=== PATIENT | female | born 1975 | race Caucasian/White ===

== ENCOUNTER → 2022-12-08 | Outpatient (CLI) | payer BC | LOC: LAB SHORT 15:11 → PLD 15:11 | DX: D48.5 Neoplasm of uncertain behavior of skin (principal) | CPT/HCPCS: 88304 ==

== ENCOUNTER 2023-06-06 05:57 | Day surgery (SDC) | payer BC ==
[~2023-06-06] VITALS: Ht 180.3 cm; Wt 136.8 kg
[2023-06-06] VITALS (11 sets, daily range): BP systolic 129–160; BP diastolic 74–92
[2023-06-06] MEDS ORDERED: AUROVELA 1 MG-1 EAC1 PO (06:47)
[2023-06-06] MEDS ORDERED: EUTHYROX125 MC1 PO (06:47)
[2023-06-06] MEDS ORDERED: MONT10T PO (06:47)
[2023-06-06] MEDS ORDERED: FLOVENT HFA12 GM INH (06:48)
[2023-06-06] MEDS ORDERED: CYCL10 PO (06:49)
[2023-06-06] MEDS ORDERED: VITAMIN D5000 UNIT PO (06:49)
[2023-06-06] MEDS ORDERED: FERRIC X-150150 M1 PO (06:50)
--- NOTE | 2023-06-06 07:27 | NUR ---
Ambulatory in Day Surgery. Pre-Op teaching done. Pt verbalizes understanding. Patient confirms NPO status and agrees with scheduled surgery. Patient reports completing Chlorhexadine shower X2 prior to admission to hospital. Surgical site prepped with 2% Chlorhexidine cloth wipe. Lungs clear T/O to Auscultation. Patient States Post-Procedure ride home has been arranged.
--- NOTE | 2023-06-06 09:30 | NUR ---
PT TO DAY SURGERY STEP DOWN. PT IS AWAKE AND ORIENTED, ABLE TO MOVE SELF IN BED, HAS NO COMPLAINTS. PT HAS UMBILICAL DRESSING, GUAZE THAT IS C/D/I WITH CLEAR TEGADERM OVER THE TOP.
--- NOTE | 2023-06-06 09:41 | NUR ---
PT TOLERATING PO FLUIDS AND CRACKERS WELL. NO CHANGE IN DRESSING.
--- NOTE | 2023-06-06 09:55 | NUR ---
Discharge instructions reviewed with patient. Patient verbalizes understanding. Copy given to patient to take home. Patient States Post-Procedure ride home has been arranged.
--- NOTE | 2023-06-06 10:21 | NUR ---
Patient up to Ambulate independently. Gait steady.
--- NOTE | 2023-06-06 10:25 | NUR ---
Discharged via wheelchair to private car for ride home.
== END 2023-06-06 10:27 | disposition home or self-care (01) ==
LOC: ORSCMMR 05:57 → ORD 07:30 → ORSCMMR 10:27
PROVIDERS: Surgery
PROC: 0WUF0JZ Supplement Abdominal Wall with Synthetic Substitute, Open Approach (ICD-10-PCS; principal; 2023-06-06 07:30)
DX: K42.0 Umbilical hernia with obstruction, without gangrene (principal); J45.909 Unspecified asthma, uncomplicated; G47.33 Obstructive sleep apnea (adult) (pediatric); E03.9 Hypothyroidism, unspecified; M79.7 Fibromyalgia; Z79.899 Other long term (current) drug therapy; E66.01 Morbid (severe) obesity due to excess calories; Z68.41 Body mass index [BMI] 40.0-44.9, adult
CPT/HCPCS: A9270; C1781; J0690; J1100; J1885; J2405; J2704; J3010; J7120

== ENCOUNTER → 2024-08-23 | Outpatient (CLI) | payer BC ==
[~2024-08-23] MED LIST: AUROVELA 1 MG-1 EAC1 PO; CYCL10 PO; EUTHYROX125 MC1 PO; FERRIC X-150150 M1 PO; FLOVENT HFA12 GM INH; MONT10T PO; VITAMIN B12500 MCG PO; VITAMIN D5000 UNIT PO; Vitamin C100 M1 PO
[2024-08-27 17:39] LABS: HPV HIGH RISK BY TMA Not Detected; HPV SOURCE Cervical
== END ==
LOC: LAB 15:27 → LAB SHORT 15:27
PROVIDERS: Family Medicine
DX: Z01.419 Encounter for gynecological examination (general) (routine) without abnormal findings (principal)
CPT/HCPCS: 87624; G0123